=== PATIENT | female | born 1945 | race Caucasian/White ===

== ENCOUNTER → 2023-10-06 10:34 | Outpatient (REF) | payer MEDICARE, BC, SELFPAY ==
[2023-10-06 11:08] LABS: Urine Albumin Negative (Neg - Trace); Urine Bilirubin Negative (Negative); Urine Character Clear (Clear); Urine Color Yellow; Urine Glucose Negative (Negative); Urine Ketone Negative (Negative); Urine Leukocyte Negative (Negative); Urine Nitrite Negative (Negative); Urine Occult Blood Negative (Negative); Urine Specific Gravity 1.025 (<1.030); Urine Urobilinogen Negative (Neg - 1+)
[2023-10-06 12:01] LABS: Glycohemoglobin (HgbA1c) 5.8 % (4.0-5.6)
[2023-10-06 12:20] LABS: TSH 0.21 uIU/ml (0.47-4.68)
== END ==
LOC: RAD 10:34
PROVIDERS: ATTENDING PHYSICIAN Family Medicine
DX: N39.0 Urinary tract infection, site not specified (principal); E03.9 Hypothyroidism, unspecified; E11.9 Type 2 diabetes mellitus without complications; R06.02 Shortness of breath
CPT/HCPCS: 36415; 71046; 81003; 83036; 84443

== ENCOUNTER → 2023-10-17 13:27 | Outpatient (REF) | payer MEDICARE, BC, SELFPAY ==
[2023-10-17 14:13] LABS: Urine Albumin Negative (Neg - Trace); Urine Bilirubin Negative (Negative); Urine Character Clear (Clear); Urine Color Yellow; Urine Glucose Negative (Negative); Urine Ketone Negative (Negative); Urine Leukocyte Trace (Negative); Urine Nitrite Negative (Negative); Urine Occult Blood Negative (Negative); Urine Urobilinogen Negative (Neg - 1+)
[2023-10-17 14:31] LABS: Urine Red Blood Cell 0-2 /HPF (0-2)
[2023-10-17 14:32] LABS: Urine White Cell 0-2 /HPF (0-5)
== END ==
LOC: REG 13:27
PROVIDERS: ATTENDING PHYSICIAN Obstetrics & Gynecology; FAMILY PHYSICIAN Family Medicine
DX: N39.0 Urinary tract infection, site not specified (principal)
CPT/HCPCS: 81003; 81015; 87086

== ENCOUNTER 2023-11-04 06:21 | Day surgery (SDC) | payer MEDICARE, BC, SELFPAY ==
[2023-10-22 12:06] VITALS: BMI 33.3
[2023-11-04] VITALS (13 sets, daily range): BP systolic 127–180; BP diastolic 53–94; BMI 33.3
[2023-11-04] MEDS: NORMOSOL-R 1000 IV (08:00)
--- NOTE | 2023-11-04 12:27 | W.IMMPOSTOP ---
Addendum entered and electronically signed by Rupert Askew MD 11/04/23 12:36:
[facility]# [id number]
Original Note:
Surgical Immed Post Op Note
-
Primary Surgeon: Jamilah
Assisting Surgeon: Aleisha
Pre-op Diagnosis: Uterine perforation
Post-op Diagnosis: Uterine perforation
Procedure Performed: Diagnostic laparoscopy
Anesthesia Type: General
Specimen / Cultures: None
Estimated Blood Loss: 7 cc
Complications: None
Operative Findings:
1. Posterior perforation of the uterus overlying the sigmoid, mild ooze from uterus
2. No evidence of colonic or small bowel violation or injury
--- NOTE | 2023-11-04 12:45 | W.IMMPOSTOP ---
Surgical Immed Post Op Note
-
Primary Surgeon: Georgiana Moraes, DO
Intraop consult: Dr. Askew, general surgery
Pre-op Diagnosis: Thickened endometrial lining
Post-op Diagnosis: same; uterine perforation
Procedure Performed: Hysteroscopy D&C, dx laparoscopy with fulgeration uterine serosa at perforation site
Anesthesia Type: general LMA converted to ET, Dr. Demarco
Specimen / Cultures: 1. endocervical curettings 2. endometrial curettings
Estimated Blood Loss: 2ml
Complications: uterine perforation noted after gentle curettage
Operative Findings: Uterus sounded to 8 cm, endocervical canal is smooth, opens into wider space suspected to be endometrial cavity. Synechiae noted, tubal ostia not seen. Gentle curettage performed. Small perforation noted-yellow epiplocia fat
seen with hysteroscope.
Laparoscopic findings: small perforation noted posterior uterus midbody with minimal oozing controlled with fulgeration. Surgicel placed. Normal appearing external appearance of uterus, tubes and ovaries. No evidence of bowel injury.
Counts correct times 2.
--- NOTE | 2023-11-04 12:51 | W.PN.UPDATE ---
Update Note
Progress Note Update
Telephone call made after procedure and I spoke with Hayley Corw's daughter- in-law who is listed as her nurseryperson. I explained surgical findings and perforation followed by laparoscopy. Explained no evidence of bowel injury. Anticipate dc
today. Reviewed precautions pt and family to monitor for.
== END 2023-11-04 15:35 | disposition home or self-care (01) ==
LOC: SDS 06:21
PROVIDERS: ATTENDING PHYSICIAN Obstetrics & Gynecology; FAMILY PHYSICIAN Family Medicine
DX: R93.89 Abnormal findings on diagnostic imaging of other specified body structures (principal); N99.71 Accidental puncture and laceration of a genitourinary system organ or structure during a genitourinary system procedure; N73.6 Female pelvic peritoneal adhesions (postinfective); Y83.8 Other surgical procedures as the cause of abnormal reaction of the patient, or of later complication, without mention of misadventure at the time of the procedure
CPT/HCPCS: 58662; 58558; 88305

== ENCOUNTER 2024-04-03 21:47 | Emergency (ER) | payer MEDICARE, BC, SELFPAY ==
[2024-04-03 21:47] VITALS: BMI 32.8
[2024-04-03 21:49] VITALS: BP 181/73
[2024-04-03 22:00] VITALS: BP 167/61
[2024-04-03 22:16] LABS: % Basophils 0.6 % (0-2); % Eosinophils 4.1 % (0-6); % Immature Granulocytes 0.2 % (0-0.5); % Lymphocytes 29.7 % (20.5-51.1); % Monocytes 9.4 % (1.7-9.3); Absolute Basophils 0.1 10^3/uL (0-0.2); Absolute Eosinophils 0.3 10^3/uL (0-0.7); Absolute Lymphocytes 2.5 10^3/uL (1.2-3.4); Absolute Monocytes 0.8 10^3/uL (0.1-0.6); Absolute Neutrophils 4.7 10^3/uL (1.4-6.5); Hematocrit 41.6 % (37.0-47.0); Hemoglobin 14.3 g/dL (12.0-16.0); Mean Corp Hgb Conc. 34.4 g/dL (33.0-37.0); Mean Corpuscular Hgb 29.5 pg (27.0-31.0); Mean Corpuscular Volume 85.8 fL (81.0-99.0); Mean Platelet Volume 9.1 fL (7.4-10.4); Nucleated Red Blood Cells % 0 %; Platelet Count 301 10^3/uL (130-400); Red Blood Cell Count 4.85 10^6/uL (4.20-5.40); Red Cell Dist. Width 13.4 % (11.5-14.5); White Blood Cell Count 8.3 10^3/uL (4.8-10.8)
[2024-04-03 22:39] LABS: NT-proBNP 65.4 pg/ml; Troponin I < 0.012 ng/ml
[2024-04-03 22:48] LABS: ALT (SGPT) 75 U/L (0-35); AST (SGOT) 61 U/L (14-36); Albumin 4.8 g/dl (3.5-5.0); Alkaline Phosphatase 118 U/L (38-126); Blood Urea Nitrogen 23 mg/dl (7-17); Calcium 9.9 mg/dl (8.4-10.2); Carbon Dioxide 28 mmol/L (22-30); Chloride 100 mmol/L (98-107); Estimated Creatinine Clearance 42 ml/min; Glucose 103 mg/dl (70-99); Potassium 4.5 mmol/L (3.5-5.1); Sodium 135 mmol/L (135-145); Total Bilirubin 0.3 mg/dl (0.2-1.3); Total Protein 7.2 g/dl (6.3-8.2)
[2024-04-03 22:56] VITALS: BP 150/77
[2024-04-03 23:00] VITALS: BP 167/61
--- NOTE | 2024-04-03 23:09 | ED.GENMED ---
History of Present Illness
General
Chief Complaint: Chest Pain
Source: patient
Time Seen by Provider: 04/03/24 22:41
History of Present Illness
History of Present Illness:
78-year-old female presents to the emergency room for evaluation of chest pain. Patient states he was watching TV when she felt a sharp pain in her chest that started on the left or to the right. It lasted a couple minutes. No associated
shortness of breath, diaphoresis or nausea. No pain now. Patient thought it might be related to her pacemaker but she has only a pacemaker and not a defibrillator. No recent fever, chills, nausea or vomiting. No pain with deep inspiration.
Past History
Past History
ED Past Medical History: CVA, GERD, HTN, Hypercholesterolemia, Hypothyroidism and Other (Linq implant following cryptogenic CVA in 2019.)
ED Past Surgical History: , Orthopedic (Bilateral knee replacements) and Other
Social History
Tobacco: Non-smoker
Alcohol: None
Drug: None
Personal:
Living: alone (Has strong family support)
Employment: Retired
Phy Exam
Physical Exam
Physical Exam:
General: Awake, Alert, Oriented X3. No acute distress.
Vitals: unremarkable
Head: Atraumatic
Eyes: Pupils equal, EOMI
Throat: Airway intact, no exudates
Neck: Trachea midline
Lungs: Clear and equal b/l
Heart: Regular rate, no murmurs
Abd: Soft, Nontender, No pulsatile mass
Neuro: Nonfocal
Skin: Warm, dry, no rash
Extremities: pulses equal b/l, no edema
Scores
Heart Score for Chest Pain Patients
STEMI patient?: No
History: Slightly or Non-Suspicious
ECG: Normal
Age: >/= 65 years
Risk Factors: 1 or 2 Risk Factors
Troponin: </= Normal Limit
Heart Score for Chest Pain Patients: 3
Heart Score Risk: 2.5% MACE over next 6 weeks
Course
Orders/Labs/Results
Orders:
Orders
04/03/24 21:49
Electrocardiogram (*1) Urgent
Reason for Study: Other
Other Reason for Exam: Respiratory Distress
Cardiac Monitoring- Treatment ONCE
EKG- Treatment ONCE
IV Insert/Care/Rem.- Treatment PRN
CR Chest - 2 Views Urgent
Comment:
Reason For Exam: respiratory distress
O2 Therapy [RESP] Urgent
Titrate/Wean O2 to maintain O2 sat greater than (%): 93
Special Instructions: TO MAINTAIN CONTINUOUS O2 SATS >/= 93%
Pulse Ox/cont/shift [RESP] Urgent
Quantity: 1
Special Instructions: continuous pulse ox
04/03/24 22:11
Complete Blood Count/With Diff Urgent
Comprehensive Metabolic Panel Urgent
NT-proBNP Urgent
Troponin I Urgent
04/04/24 00:31
Troponin I Urgent
Abnormal Lab Results
04/03/24
22:11
Absolute Monos (auto) 0.8 H 10^3/uL
(0.1-0.6)
Monocytes % 9.4 H %
(1.7-9.3)
BUN 23 H mg/dl
(7-17)
Creatinine 1.1 H mg/dL
(0.6-1.0)
Glucose 103 H mg/dl
(70-99)
AST 61 H U/L
(14-36)
ALT 75 H U/L
(0-35)
04/03/24 22:11
04/03/24 22:11
Vital Signs
Initial and Last Documented VS:
Initial Vital Signs
Temp Pulse Resp BP Pulse Ox
97.7 F 63 20 181/73 96
04/03/24 21:49 04/03/24 21:49 04/03/24 21:49 04/03/24 21:49 04/03/24 21:49
Last Documented Vital Signs
Temp Pulse Resp BP Pulse Ox
97.7 F 65 14 140/60 95
04/03/24 21:49 04/04/24 00:00 04/04/24 00:00 04/04/24 00:00 04/04/24 00:00
MDM/Problems Addressed
Differential Diagnosis Includes:
angina, muscle strain, chest wall pain, dysrythmia
MDM/Problems Addressed:
Patient presents after a episode of chest pain which is resolved. Labs here show a normal troponin x 2. EKG shows no acute ischemic changes. Chest x-ray shows no acute disease. Patient is not tachycardic. She does not have a pleuritic component
to her chest pain. There is no evidence for any unstable process. Patient stable for discharge home.
*Radiology
Radiology exam reviewed: preliminary read by ED provider (Personally viewed the patient's chest x-ray see no acute disease)
*Pulse Oximetry
Patient hypoxic: no
*EKG
Interpreted by ED Provider?: Yes
Interpretation: normal
Heart Rate: 61
Rate: normal
Rhythm: av sequential
[place]: normal axis
Interval: normal interval
QRS Pattern: normal QRS
Ischemia: no ischemia
*Risk Consulting Treasury Director Interpretation
Rate: normal
Interpretation: normal
Rhythm: av sequential
*Critical Care Note
Total Time (30-74mins, 75-104mins- exclusive of procedures): Not Applicable
ED Attending Note
-
Portions of this chart may have been created with voice recognition software.� Occasional wrong word or��sound alike� substitutions may have occurred due to the inherent limitations of voice recognition software.
Discharge Plan
Departure
Patient Disposition: Home (Routine Discharge)
Date of Disposition: 04/04/24
Time of Disposition: 01:10
Patient with high blood pressure during this ER visit?: No
Condition: Good
Discharge Problem:
Chest pain
Instructions: Chest Pain DCA Follow Up
Prescriptions:
No Action
levothyroxine 100 MCG tablet
100 mcg PO DAILY
pantoprazole 40 MG tablet,delayed release (DR/EC)
40 mg PO DAILY
losartan 50 MG tablet
50 mg PO DAILY
escitalopram oxalate 20 MG tablet
20 mg PO DAILY
cyclosporine [Restasis] 10 DROPS dropperette
1 drp BOTH EYES BIDPRN PRN (Reason: dry eyes)
Cbd Oil
0.25 ml PO BIDPRN PRN (Reason: pain)
Caltrate 600 plus D 1 EACH tablet,chewable
1 ea PO BID
atorvastatin 80 MG tablet
80 mg PO QPM
amlodipine 5 MG tablet
5 mg PO DAILY
clopidogrel 75 MG tablet
75 mg PO DAILY Qty: 0 0RF
Rx Instructions:
Resume on Saturday 02/10
Centrum Silver
1 tab PO DAILY
magnesium 400 mg tablet
400 mg PO DAILY
Referrals:
Markie Hoover DO [Family Provider] -
Interventions
Interventions:
*General Assessment Last Done: 04/03/24 21:49
Discharge Date and Time
Print Language: BELARUSIAN
[2024-04-04] VITALS: BP 140/60
[2024-04-04 01:00] VITALS: BP 144/57
[2024-04-04 01:05] LABS: Troponin I < 0.012 ng/ml
== END 2024-04-04 01:35 | disposition home or self-care (01) ==
LOC: EMR 21:47
PROVIDERS: Emergency Medicine; EMERGENCY PHYSICIAN Emergency Medicine; FAMILY PHYSICIAN Family Medicine
DX: R07.89 Other chest pain (principal); K21.9 Gastro-esophageal reflux disease without esophagitis; I10 Essential (primary) hypertension; E78.00 Pure hypercholesterolemia, unspecified; E03.9 Hypothyroidism, unspecified; Z95.0 Presence of cardiac pacemaker; Z86.73 Personal history of transient ischemic attack (TIA), and cerebral infarction without residual deficits; Z96.653 Presence of artificial knee joint, bilateral
CPT/HCPCS: 99283; 71046; 80053; 83880; 84484; 85025; 93005

== ENCOUNTER → 2024-04-22 07:36 | Outpatient (REF) | payer MEDICARE, BC, SELFPAY ==
[2024-04-22 09:05] LABS: HDL Cholesterol 68 mg/dl; LDL Cholesterol, Calculated 119 mg/dl; Total Cholesterol 217 mg/dl (50-199); Triglyceride 150 mg/dl (10-149); Very Low Density Lipoprotein 30 mg/dl (0-30)
== END ==
LOC: REG 07:36
PROVIDERS: ATTENDING PHYSICIAN Internal Medicine Cardiovascular Disease; FAMILY PHYSICIAN Family Medicine
DX: E78.5 Hyperlipidemia, unspecified (principal)
CPT/HCPCS: 36415; 80061

== ENCOUNTER → 2024-05-12 13:01 | Outpatient (REF) | payer MEDICARE, BC, SELFPAY | LOC: MRI 13:01 | PROVIDERS: ATTENDING PHYSICIAN Obstetrics & Gynecology; FAMILY PHYSICIAN Family Medicine | DX: R93.89 Abnormal findings on diagnostic imaging of other specified body structures (principal) | CPT/HCPCS: 72197; A9575 ==

== ENCOUNTER 2024-08-20 14:27 | Emergency (ER) | payer MEDICARE, BC, SELFPAY ==
[2024-08-20 14:30] VITALS: BP 175/98
[2024-08-20 15:19] LABS: % Basophils 0.9 % (0-2); % Immature Granulocytes 0.1 % (0-0.5); % Lymphocytes 28.2 % (20.5-51.1); % Monocytes 11.1 % (1.7-9.3); % Neutrophils 54.7 % (42.2-75.2); Absolute Basophils 0.1 10^3/uL (0-0.2); Absolute Eosinophils 0.4 10^3/uL (0-0.7); Absolute Lymphocytes 2.1 10^3/uL (1.2-3.4); Absolute Monocytes 0.8 10^3/uL (0.1-0.6); Absolute Neutrophils 4.2 10^3/uL (1.4-6.5); Hematocrit 44.1 % (37.0-47.0); Hemoglobin 14.6 g/dL (12.0-16.0); Mean Corp Hgb Conc. 33.1 g/dL (33.0-37.0); Mean Corpuscular Hgb 29.1 pg (27.0-31.0); Mean Platelet Volume 9.2 fL (7.4-10.4); Nucleated Red Blood Cells % 0 %; Platelet Count 293 10^3/uL (130-400); Red Blood Cell Count 5.01 10^6/uL (4.20-5.40); Red Cell Dist. Width 13.6 % (11.5-14.5); White Blood Cell Count 7.6 10^3/uL (4.8-10.8)
[2024-08-20 15:27] LABS: ALT (SGPT) 87 U/L (0-35); AST (SGOT) 43 U/L (14-36); Albumin 4.7 g/dl (3.5-5.0); Alkaline Phosphatase 76 U/L (38-126); Blood Urea Nitrogen 20 mg/dl (7-17); Calcium 9.8 mg/dl (8.4-10.2); Carbon Dioxide 33 mmol/L (22-30); Chloride 98 mmol/L (98-107); Glucose 112 mg/dl (70-99); Potassium 4.9 mmol/L (3.5-5.1); Sodium 138 mmol/L (135-145); Total Bilirubin 0.2 mg/dl (0.2-1.3); Total Protein 7.3 g/dl (6.3-8.2); eGFR > 60.00
[2024-08-20 15:38] LABS: Urine Albumin Negative (Neg - Trace); Urine Bilirubin Negative (Negative); Urine Character Clear (Clear); Urine Color Yellow; Urine Glucose Negative (Negative); Urine Ketone Negative (Negative); Urine Leukocyte 1+ (Negative); Urine Nitrite Negative (Negative); Urine Occult Blood Negative (Negative); Urine Specific Gravity 1.015 (<1.030); Urine Urobilinogen Negative (Neg - 1+); Urine pH 6.5 (5.0-9.0)
[2024-08-20 16:07] LABS: Urine Red Blood Cell 0-2 /HPF (0-2); Urine White Cell 0-2 /HPF (0-5)
[2024-08-20 16:50] VITALS: BMI 32.7
--- NOTE | 2024-08-20 16:55 | EDRN ---
Pt took 2 buspirone 5mg tablets yesterday morning. Around [id number] last night she took lexapro 20mg which she has not had for awhile. Pt unsure if she has taken it since December. Before pt went to bed, she was hallucinating. Called family physician
and advised to come to ED for evaluation. While in the waiting room, pt says she had couple hallucinations. Pt had nausea couple times today. No vomiting. Pt denies cp, sob, abd pain, fever/chills/cough.
[2024-08-20 17:06] VITALS: BP 180/71
[2024-08-20 18:00] VITALS: BP 177/75
[2024-08-20 19:00] VITALS: BP 177/80
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
== END 2024-08-20 19:45 | disposition home or self-care (01) ==
LOC: EMR 14:27
PROVIDERS: Student in an Organized Health Care Education/Training Program; EMERGENCY PHYSICIAN Emergency Medicine; FAMILY PHYSICIAN Family Medicine
DX: R41.82 Altered mental status, unspecified (principal); T50.905A Adverse effect of unspecified drugs, medicaments and biological substances, initial encounter; I10 Essential (primary) hypertension
CPT/HCPCS: 99284; 70450; 80053; 81003; 81015; 85025; 87086

== ENCOUNTER → 2024-11-25 10:12 | Outpatient (REF) | payer MEDICARE, BC, SELFPAY ==
[2024-11-25 11:13] LABS: % Basophils 0.7 % (0-2); % Eosinophils 7.1 % (0-6); % Immature Granulocytes 0.2 % (0-0.5); % Lymphocytes 21.2 % (20.5-51.1); % Monocytes 9.4 % (1.7-9.3); % Neutrophils 61.4 % (42.2-75.2); Absolute Eosinophils 0.4 10^3/uL (0-0.7); Absolute Lymphocytes 1.2 10^3/uL (1.2-3.4); Absolute Monocytes 0.5 10^3/uL (0.1-0.6); Absolute Neutrophils 3.5 10^3/uL (1.4-6.5); Hematocrit 45.4 % (37.0-47.0); Hemoglobin 14.9 g/dL (12.0-16.0); Mean Corp Hgb Conc. 32.8 g/dL (33.0-37.0); Mean Corpuscular Volume 88.5 fL (81.0-99.0); Mean Platelet Volume 9.4 fL (7.4-10.4); Nucleated Red Blood Cells % 0 %; Platelet Count 253 10^3/uL (130-400); Red Blood Cell Count 5.13 10^6/uL (4.20-5.40); White Blood Cell Count 5.7 10^3/uL (4.8-10.8)
[2024-11-25 11:45] LABS: ALT (SGPT) 60 U/L (0-35); AST (SGOT) 42 U/L (14-36); Albumin 4.2 g/dl (3.5-5.0); Alkaline Phosphatase 78 U/L (38-126); Blood Urea Nitrogen 20 mg/dl (7-17); Calcium 9.9 mg/dl (8.4-10.2); Carbon Dioxide 33 mmol/L (22-30); Chloride 106 mmol/L (98-107); Glucose 104 mg/dl (70-99); HDL Cholesterol 64 mg/dl; LDL Cholesterol, Calculated 123 mg/dl; Potassium 4.6 mmol/L (3.5-5.1); Sodium 145 mmol/L (135-145); Total Bilirubin 0.5 mg/dl (0.2-1.3); Total Cholesterol 210 mg/dl (50-199); Triglyceride 115 mg/dl (10-149); Very Low Density Lipoprotein 23 mg/dl (0-30)
[2024-11-25 12:14] LABS: TSH 0.06 uIU/ml (0.47-4.68)
== END ==
LOC: REG 10:12
PROVIDERS: ATTENDING PHYSICIAN Family Medicine
DX: I10 Essential (primary) hypertension (principal); E78.5 Hyperlipidemia, unspecified; R53.83 Other fatigue; E03.9 Hypothyroidism, unspecified
CPT/HCPCS: 36415; 80053; 80061; 84443; 85025

== ENCOUNTER 2024-12-28 18:53 | Emergency (ER) | payer MEDICARE, BC, SELFPAY ==
[2024-12-28] VITALS (7 sets, daily range): BP systolic 158–214; BP diastolic 66–88
[2024-12-28 19:10] LABS: % Basophils 0.6 % (0-2); % Eosinophils 3.4 % (0-6); % Immature Granulocytes 0.2 % (0-0.5); % Lymphocytes 22.8 % (20.5-51.1); % Monocytes 8.6 % (1.7-9.3); % Neutrophils 64.4 % (42.2-75.2); Absolute Basophils 0.1 10^3/uL (0-0.2); Absolute Eosinophils 0.3 10^3/uL (0-0.7); Absolute Monocytes 0.7 10^3/uL (0.1-0.6); Absolute Neutrophils 5.6 10^3/uL (1.4-6.5); Hematocrit 40.3 % (37.0-47.0); Hemoglobin 13.9 g/dL (12.0-16.0); Mean Corp Hgb Conc. 34.5 g/dL (33.0-37.0); Mean Corpuscular Hgb 29.6 pg (27.0-31.0); Mean Corpuscular Volume 85.7 fL (81.0-99.0); Mean Platelet Volume 9.2 fL (7.4-10.4); Nucleated Red Blood Cells % 0 %; Platelet Count 242 10^3/uL (130-400); Red Cell Dist. Width 13.2 % (11.5-14.5); White Blood Cell Count 8.6 10^3/uL (4.8-10.8)
[2024-12-28] MEDS: NSS 1000 IV (19:27)
[2024-12-28] MEDS: TRANDATE 20 MG IV (19:28)
[2024-12-28 19:30] LABS: Blood Urea Nitrogen 30 mg/dl (7-17); Calcium 9.3 mg/dl (8.4-10.2); Carbon Dioxide 23 mmol/L (22-30); Chloride 99 mmol/L (98-107); Estimated Creatinine Clearance 55 ml/min; Glucose 101 mg/dl (70-99); Sodium 133 mmol/L (135-145); eGFR > 60.00
[2024-12-28 19:33] LABS: Troponin I < 0.012 ng/ml
[2024-12-28] MEDS: ZOFRAN 4 MG IV (19:34)
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
[2024-12-28] MEDS: ANTIVERT 25 MG PO (20:41)
== END 2024-12-28 22:32 | disposition home or self-care (01) ==
LOC: EMR 18:53
PROVIDERS: Emergency Medicine; EMERGENCY PHYSICIAN Student in an Organized Health Care Education/Training Program; FAMILY PHYSICIAN Family Medicine
DX: R42 Dizziness and giddiness (principal); R11.2 Nausea with vomiting, unspecified; H55.00 Unspecified nystagmus; I10 Essential (primary) hypertension; E03.9 Hypothyroidism, unspecified; E78.00 Pure hypercholesterolemia, unspecified; Z86.73 Personal history of transient ischemic attack (TIA), and cerebral infarction without residual deficits; Z95.0 Presence of cardiac pacemaker
CPT/HCPCS: 96374; 96375; 96361; 99284; 70450; 80048; 84484; 85025; 93005

== ENCOUNTER 2024-12-30 14:38 | Emergency (ER) | payer MEDICARE, BC, SELFPAY ==
[2024-12-30 14:50] VITALS: BP 183/95
[2024-12-30 15:17] LABS: % Basophils 0.5 % (0-2); % Eosinophils 3.7 % (0-6); % Immature Granulocytes 0.1 % (0-0.5); % Lymphocytes 18.1 % (20.5-51.1); % Monocytes 7.3 % (1.7-9.3); % Neutrophils 70.3 % (42.2-75.2); Absolute Eosinophils 0.3 10^3/uL (0-0.7); Absolute Lymphocytes 1.3 10^3/uL (1.2-3.4); Absolute Monocytes 0.5 10^3/uL (0.1-0.6); Absolute Neutrophils 5.1 10^3/uL (1.4-6.5); Hematocrit 44.5 % (37.0-47.0); Hemoglobin 14.5 g/dL (12.0-16.0); Mean Corp Hgb Conc. 32.6 g/dL (33.0-37.0); Mean Corpuscular Hgb 28.9 pg (27.0-31.0); Mean Corpuscular Volume 88.8 fL (81.0-99.0); Mean Platelet Volume 9.4 fL (7.4-10.4); Nucleated Red Blood Cells % 0 %; Platelet Count 264 10^3/uL (130-400); Red Blood Cell Count 5.01 10^6/uL (4.20-5.40); Red Cell Dist. Width 13.7 % (11.5-14.5); White Blood Cell Count 7.3 10^3/uL (4.8-10.8)
[2024-12-30 15:40] LABS: ALT (SGPT) 45 U/L (0-35); AST (SGOT) 43 U/L (14-36); Albumin 4.5 g/dl (3.5-5.0); Alkaline Phosphatase 74 U/L (38-126); Blood Urea Nitrogen 15 mg/dl (7-17); Calcium 9.7 mg/dl (8.4-10.2); Carbon Dioxide 29 mmol/L (22-30); Chloride 101 mmol/L (98-107); Glucose 108 mg/dl (70-99); Potassium 4.4 mmol/L (3.5-5.1); Sodium 140 mmol/L (135-145); Total Bilirubin 0.4 mg/dl (0.2-1.3); eGFR > 60.00
[2024-12-30 15:45] VITALS: BMI 32.4
[2024-12-30 16:00] VITALS: BP 194/72
--- NOTE | 2024-12-30 16:56 | ED.GENMED ---
History of Present Illness
General
Chief Complaint: Blood Pressure Problem
Source: patient and family
Time Seen by Provider: 12/30/24 16:04
History of Present Illness
History of Present Illness:
This is an 79-year-old female who again presents for elevated blood pressure. She was seen on Friday after she had become a little dizzy and her blood pressure was noted to be very elevated. Patient states that she took it at home and it was
noted again to be elevated today and call cardiology advised her to come to the hospital. The patient states that she did see her primary doctor yesterday. [id number] states that the Dr. Did not make any changes. Call cardiology today and
they realized that the patient had not filled her amlodipine in some time. They are unsure as to when she should have been on it. [id number] did give her a dose today. Patient denies chest pain. Has a mild headache but otherwise feels well.
No shortness of breath. The patient states that she does not typically check her blood pressure so is not really sure how long it has been high
Past History
Past History
ED Past Medical History: CVA, GERD, HTN, Hypercholesterolemia, Hypothyroidism and Other (Linq implant following cryptogenic CVA in 2019. Head injury)
ED Past Surgical History: , Orthopedic (Bilateral knee replacements) and Other
Social History
Tobacco: Non-smoker
Alcohol: None
Drug: None
Personal:
Living: alone (Has strong family support)
Employment: Retired
Phy Exam
Physical Exam
Physical Exam:
CONSTITUTIONAL Patient alert and oriented to person, place and time. Well-appearing. Vital signs reviewed.
HEAD atraumatic, normocephalic.
EYES eyelids normal to inspection, Extraocular muscles intact, Conjunctiva normal, Sclera normal.
NECK normal range of motion, Trachea midline, no jugular venous distention.
RESPIRATORY CHEST No respiratory distress noted, Chest expansion equal, Bilateral breath sounds clear.
CARDIOVASCULAR regular rate and rhythm, Heart sounds normal.
ABDOMEN abdomen nontender, Bowel sounds normal. No distention.
BACK normal inspection, no obvious deformities
UPPER EXTREMITY range of motion normal, Motor strength normal, no cyanosis, no edema.
LOWER EXTREMITY range of motion normal, Motor strength normal, no cyanosis, no edema.
NEURO Speech normal, No focal motor deficits, C[place]on coma scale 15, Memory normal, Cranial Nerves intact to screening exam.
SKIN skin warm, dry, and normal in color.
Course
Orders/Labs/Results
Orders:
Orders
12/30/24 14:54
EKG [Electrocardiogram (*1)] Urgent
Reason for Study: Hypertension, Benign
EKG- Treatment ONCE
12/30/24 15:05
Complete Blood Count/With Diff Urgent
Comprehensive Metabolic Panel Urgent
Abnormal Lab Results
12/30/24
15:05
MCHC 32.6 L g/dL
(33.0-37.0)
Lymphocytes % 18.1 L %
(20.5-51.1)
Glucose 108 H mg/dl
(70-99)
AST 43 H U/L
(14-36)
ALT 45 H U/L
(0-35)
12/30/24 15:05
12/30/24 15:05
Vital Signs
Initial and Last Documented VS:
Initial Vital Signs
Temp Pulse Resp BP Pulse Ox
98.2 F 63 18 183/95 97
12/30/24 14:50 12/30/24 14:50 12/30/24 14:50 12/30/24 14:50 12/30/24 14:50
Last Documented Vital Signs
Temp Pulse Resp BP Pulse Ox
98.2 F 68 16 194/72 95
12/30/24 14:50 12/30/24 16:30 12/30/24 16:30 12/30/24 16:00 12/30/24 16:30
MDM/Problems Addressed
Differential Diagnosis Includes:
Renal artery stenosis, DE, CVA, acute renal failure
MDM/Problems Addressed:
Uncontrolled hypertension
*Pulse Oximetry
Patient hypoxic: no
*EKG
Interpreted by ED Provider?: Yes
Interpretation: abnormal
Rhythm: av sequential
Ischemia: non-specific ST changes
*Freight Caller Interpretation
Rate: normal
Interpretation: abnormal
Rhythm: av sequential
*Critical Care Note
Total Time (30-74mins, 75-104mins- exclusive of procedures): Not Applicable
Data Reviewed
Review of Other/Old Records Reveals: Labs (Previous labs reviewed)
Source: patient
Prescriptions/Medications Considered But Not Given:
Considered IV hydralazine patient's blood pressure is improving and she feels well
Patient Management
Discussion with other providers: Retail Visual Merchandiser (Cardiology Dr. Winn)
Escalation/DeEscalation of care consider admission/obs:
Case discussed cardiology. Patient has not been taking her amlodipine. We will have her start taking 10 mg daily. She will continue her losartan and follow-up with both cardiology and PCP
ED Attending Note
-
Portions of this chart may have been created with voice recognition software.� Occasional wrong word or��sound alike� substitutions may have occurred due to the inherent limitations of voice recognition software.
Discharge Plan
Departure
Patient Disposition: Home (Routine Discharge)
Date of Disposition: 12/30/24
Time of Disposition: 16:57
Patient with high blood pressure during this ER visit?: Yes
Discharge Problem:
Uncontrolled hypertension
Instructions: High Blood Pressure (DC), BLOOD PRESSURE
Prescriptions:
No Action
levothyroxine 100 MCG tablet
100 mcg PO DAILY
pantoprazole 40 MG tablet,delayed release (DR/EC)
40 mg PO BID
losartan 50 MG tablet
50 mg PO BID
escitalopram oxalate 20 MG tablet
20 mg PO DAILY
cyclosporine [Restasis] 10 DROPS dropperette
1 drp BOTH EYES BIDPRN PRN (Reason: dry eyes)
Caltrate 600 plus D 1 EACH tablet,chewable
1 ea PO BID
atorvastatin 80 MG tablet
80 mg PO QPM
amlodipine 5 MG tablet
5 mg PO DAILY
Centrum Silver Women 8 mg iron-400 mcg-50 mcg Tablet
1 tab PO DAILY
magnesium oxide 400 mg magnesium Capsule
400 mg PO DAILY
aspirin 81 mg Capsule
81 mg PO DAILY
buspirone 5 mg Tablet
5 mg PO BID PRN (Reason: anxiety)
riboflavin (vitamin B2) 400 mg Tablet
400 mg PO DAILY
famotidine 40 mg Tablet
40 mg PO BID
Zyrtec
1 tab PO DAILY
meclizine 25 mg tablet
25 mg PO TID PRN (Reason: dizziness) 5 Days Qty: 15 0RF
Referrals:
NONE,* [Family Provider] -
Activity Restrictions/Additional Instructions:
Please increase your amlodipine to 10 mg daily. Please continue your losartan as prescribed. Please see your doctor or cardiology in the next 1 week for follow-up and reevaluation. Return immediately for chest pain, shortness of breath, headache,
vision change, motor weakness or any other concerns peer
Interventions
Interventions:
*Risk Screen - Suicide Last Done: 12/30/24 14:50
*General Assessment Last Done: 12/30/24 14:50
*Neglect/Abuse Screening Last Done: 12/30/24 14:50
*ED- Fall Risk Assessment Last Done: 12/30/24 15:48
*ED COVID-19 Vaccine History Last Done: 12/30/24 14:50
ED- Cardiac Assessment Last Done: 12/30/24 15:48
ED- Neurological Assessment Last Done: 12/30/24 15:48
ED- Pulmonary Assessment Last Done: 12/30/24 15:48
Discharge Date and Time
Print Language: WALLISIAN
== END 2024-12-30 17:16 | disposition home or self-care (01) ==
LOC: EMR 14:38
PROVIDERS: Emergency Medicine; EMERGENCY PHYSICIAN Emergency Medicine
DX: I10 Essential (primary) hypertension (principal); R42 Dizziness and giddiness; E03.9 Hypothyroidism, unspecified; E78.00 Pure hypercholesterolemia, unspecified; Z86.73 Personal history of transient ischemic attack (TIA), and cerebral infarction without residual deficits; Z79.899 Other long term (current) drug therapy; R94.31 Abnormal electrocardiogram [ECG] [EKG]
CPT/HCPCS: 99284; 80053; 85025; 93005

== ENCOUNTER → 2025-01-13 16:00 | Outpatient (REF) | payer MEDICARE, BC, SELFPAY | LOC: RCS 16:00 | PROVIDERS: ATTENDING PHYSICIAN Internal Medicine Cardiovascular Disease; FAMILY PHYSICIAN Family Medicine | DX: I35.0 Nonrheumatic aortic (valve) stenosis (principal) | CPT/HCPCS: 93306 ==

== ENCOUNTER → 2025-01-18 11:32 | Outpatient (REF) | payer MEDICARE, BC, SELFPAY ==
[2025-01-18 13:33] LABS: Free T4 1.21 ng/dl (0.78-2.19)
[2025-01-18 13:47] LABS: TSH 0.61 uIU/ml (0.47-4.68)
== END ==
LOC: REG 11:32
PROVIDERS: ATTENDING PHYSICIAN Family Medicine; OTHER PHYSICIAN Internal Medicine Cardiovascular Disease
DX: E03.9 Hypothyroidism, unspecified (principal)
CPT/HCPCS: 36415; 84439; 84443

== ENCOUNTER → 2025-04-05 15:50 | Outpatient (REF) | payer MEDICARE, BC, SELFPAY | LOC: RAD 15:50 | PROVIDERS: ATTENDING PHYSICIAN Internal Medicine Gastroenterology; FAMILY PHYSICIAN Family Medicine | DX: R14.0 Abdominal distension (gaseous) (principal) | CPT/HCPCS: 74019 ==

== ENCOUNTER 2025-04-08 06:28 | Day surgery (SDC) | payer MEDICARE, BC, SELFPAY | END 2025-04-08 12:36 | disposition home or self-care (01) | LOC: GI 06:28 | PROVIDERS: ATTENDING PHYSICIAN Internal Medicine Gastroenterology | DX: R12 Heartburn (principal); R13.10 Dysphagia, unspecified; K31.7 Polyp of stomach and duodenum; K44.9 Diaphragmatic hernia without obstruction or gangrene; K31.89 Other diseases of stomach and duodenum; K29.50 Unspecified chronic gastritis without bleeding; K63.89 Other specified diseases of intestine | CPT/HCPCS: 43239; 88305; 88342 ==

== ENCOUNTER 2025-06-21 17:22 | Inpatient (IN) | payer MEDICARE, BC, SELFPAY ==
[2025-06-20] VITALS (12 sets, daily range): BP systolic 137–167; BP diastolic 58–84; BMI 34.4; BMI 32.0
[2025-06-20 14:00] LABS: Hematocrit 42.3 % (37.0-47.0); Hemoglobin 13.9 g/dL (12.0-16.0); Mean Corp Hgb Conc. 32.9 g/dL (33.0-37.0); Mean Corpuscular Volume 88.1 fL (81.0-99.0); Nucleated Red Blood Cells % 0 %; Platelet Count 290 10^3/uL (130-400); Red Cell Dist. Width 14.0 % (11.5-14.5)
[2025-06-20 14:13] LABS: ALT (SGPT) 68 U/L (0-35); AST (SGOT) 47 U/L (14-36); Albumin 4.4 g/dl (3.5-5.0); Alkaline Phosphatase 85 U/L (38-126); Blood Urea Nitrogen 29 mg/dl (7-17); Calcium 9.8 mg/dl (8.4-10.2); Carbon Dioxide 26 mmol/L (22-30); Chloride 103 mmol/L (98-107); Estimated Creatinine Clearance 53 ml/min; Glucose 110 mg/dl (70-99); Lipase 118 U/L (23-300); Potassium 4.5 mmol/L (3.5-5.1); Sodium 134 mmol/L (135-145); Total Protein 7.2 g/dl (6.3-8.2); eGFR > 60.00
[2025-06-20 14:14] LABS: INR 0.94; PT 12.8 Sec (11.4-14.6)
--- NOTE | 2025-06-20 14:17 | ED.GENMED ---
History of Present Illness
General
Chief Complaint: Chest Pain
Source: patient
Exam Limitations: none
Time Seen by Provider: 06/20/25 14:11
History of Present Illness
History of Present Illness:
See MDM
Past History
Past History
ED Past Medical History: CVA, GERD, HTN, Hypercholesterolemia, Hypothyroidism and Other (Linq implant following cryptogenic CVA in 2019. Head injury)
ED Past Surgical History: , Orthopedic (Bilateral knee replacements) and Other
Social History
Tobacco: Non-smoker
Alcohol: None
Drug: None
Personal:
Living: alone (Has strong family support)
Employment: Retired
Phy Exam
Physical Exam
Physical Exam:
See MDM
Scores
Heart Score for Chest Pain Patients
STEMI patient?: No
History: Slightly or Non-Suspicious
ECG: Nonspecific Repolarization
Age: >/= 65 years
Risk Factors: 1 or 2 Risk Factors
Troponin: >1 - <3 x Normal Limit
Heart Score for Chest Pain Patients: 5
Heart Score Risk: 20.3% MACE over next 6 weeks
Course
Orders/Labs/Results
Orders:
Orders
06/20/25 Breakfast
Cholesterol Lowering
At Your Request: Full Participation
Does patient need a safe tray?: No
Cholesterol Lowering: Sodium, 2 Gram
06/20/25 13:15
Electrocardiogram (*1) Urgent
Reason for Study: Chest Pain
EKG- Treatment ONCE
06/20/25 13:52
Complete Blood Count/With Diff Urgent
Comprehensive Metabolic Panel Urgent
Lipase Urgent
Prothrombin Time Urgent
Troponin I Urgent
06/20/25 14:15
Morphine Sulfate 4 mg IV NOW STA
CR Chest - 2 Views Urgent
Comment:
Reason For Exam: chest pain
06/20/25 15:47
Troponin I Urgent
06/20/25 16:55
Electrocardiogram (*1) Urgent
Reason for Study: Chest Pain
EKG- Treatment ONCE
06/20/25 18:15
Admit/Transfer Patient As Directed
Co-Sign Provider:
Level of Care: Observation services
Assign to:: Telemetry
Physician / Group: Hospitalist
Diagnosis: Chest Pain
Reason for Telemetry: Chest Pain syndromes
Date to Stop Telemetry: 06/22/25
Time to Stop Telemetry: 11:00
Expected length of stay greater than two midnights?: Yes
ELOS- Estimated Length of Stay in days: 2
I certify the patient meets the requirements for IP care: Yes
PRN Pain Medication Management As Directed
May give lesser potent ordered pain med per pt: Yes
preference::
Protocol:: Medication orders for pain may be administered in a
manner that supports deferring to patient preference
when the pt is:
-Requesting an ordered lesser potent pain medication.
Least to most potent pain medications are defined as:
acetaminophen < NSAID < tramadol < opioids (morphine,
oxycodone, hydromorphone).
- Requesting a lesser dose of the same medication IF
ORDERED.
- Requesting a less intrusive route of administration
if both routes are prescribed by the provider (PO <
IV).
06/20/25 18:22
Code Status As Directed
Resuscitation Status: Full Code
06/20/25 19:07
CARDIOLOGY CONSULT Routine
Consulting Provider: Joselin Villavicencio
Was physician already notified: Yes
06/20/25 21:50
Acetaminophen [Tylenol] 650 mg PO Q4HWA
Bisacodyl [Dulcolax] 10 mg RECTAL [id number] PRN
Buspirone [Buspar] 5 mg PO BID PRN anxiety
Docusate W/Senna [Senokot-S] 1 tablet PO BIDPRN PRN
Losartan [Cozaar] 50 mg PO BID
Meclizine [Antivert] 25 mg PO TID PRN dizziness
Pantoprazole [Protonix] 40 mg PO BID
Polyethylene Glycol Powder [Miralax] 17 grams PO DAILYPRN PRN
cycloSPORINE [Restasis 0.05% Ophthalmic Emulsion] 1 drops BOTH EYES BIDPRN PRN dry eyes
06/20/25 21:50
Activity As Directed
Activity Level: As Tolerated
Vital Signs As Directed
Frequency: Per unit guidelines
DX Deep Vein Thrombosis Video Routine
06/20/25 22:00
Cetirizine HCl [Zyrtec] 5 mg PO DAILYPRN PRN Allergies Allergies
06/20/25 22:48
Troponin I Q6H
06/21/25 00:00
US Periph Venous LOWER Ext Mehdi Routine
Reason For Exam: Ankle Swelling/Calf Cramping
06/21/25 03:12
Complete Blood Count/No Diff IN AM
Comprehensive Metabolic Panel IN AM
Magnesium IN AM
Troponin I Q6H
06/21/25 06:00
Levothyroxine [Synthroid] 100 mcg PO DAILY @ 0600
06/21/25 08:00
Amlodipine [Norvasc] 5 mg PO DAILY
Aspirin Low Dose EC [Aspir Low (Enteric Coated)] 81 mg PO DAILY
Calcium Carbonate/Vitamin D3 [Oscal 500 + D] 500 mg PO BID
Escitalopram Oxalate [Lexapro] 20 mg PO DAILY
Famotidine [Pepcid] 40 mg PO BID
Magnesium Oxide 400 mg PO DAILY
06/21/25 09:50
Troponin I Q6H
06/21/25 18:00
Atorvastatin [Lipitor] 80 mg PO QPM
Enoxaparin Sodium [Lovenox] 40 mg SC QPM
06/22/25 11:00
DC Protocol for Telemetry ONCE
Abnormal Lab Results
06/20/25 06/20/25
13:52 15:47
MCHC 32.9 L g/dL
(33.0-37.0)
Absolute Monos (auto) 0.8 H 10^3/uL
(0.1-0.6)
Lymphocytes % 16.0 L %
(20.5-51.1)
Monocytes % 9.4 H %
(1.7-9.3)
Sodium 134 L mmol/L
(135-145)
BUN 29 H mg/dl
(7-17)
Glucose 110 H mg/dl
(70-99)
AST 47 H U/L
(14-36)
ALT 68 H U/L
(0-35)
Troponin I 0.062 H* D ng/ml
06/20/25 13:52
06/20/25 13:52
Vital Signs
Initial and Last Documented VS:
Initial Vital Signs
Temp Pulse Resp BP Pulse Ox
98.7 F 44 18 161/82 96
06/20/25 13:16 06/20/25 13:16 06/20/25 13:16 06/20/25 13:16 06/20/25 13:16
Last Documented Vital Signs
Temp Pulse Resp BP Pulse Ox
97.9 F 66 16 144/64 97
06/21/25 03:05 06/21/25 08:02 06/21/25 08:02 06/21/25 08:01 06/21/25 08:04
MDM/Problems Addressed
Differential Diagnosis Includes:
Note:
CHIEF COMPLAINT(S)
Pain in the upper body, particularly around the pacemaker site, left arm, and under the arm.
HISTORY OF PRESENT ILLNESS
The patient is an 80-year-old female with a pacemaker, presenting with pain that began at approximately 11:00 a.m. today. The pain was triggered when she bent over after getting up from the sofa. She describes the pain as originating from the area
around her pacemaker and extending to her left arm and underarm. The pain persists, and although she experiences some relief, the discomfort continues. Associated symptoms include nausea. She denies consistent shortness of breath, feeling it only
occasionally. There is no significant pain reported in the upper middle abdomen or childbirth after eating. She is concerned about possible gallbladder issues. The patient is unclear if the pain may be muscular, suggesting a strain as a potential
cause.
SOCIAL DETERMINANTS AFFECTING HEALTH
The patient did not mention any social determinants affecting her health or care at this time.
PHYSICAL EXAM
General: Alert, no acute distress.
Skin: Warm, dry.
Head: Normocephalic, atraumatic
Neck: Appears supple, trachea midline.
Eyes, Ears, Nose, Mouth, and Throat: Moist mucous membranes
Cardiovascular: No signs of cyanosis. Regular rate and rhythm
Respiratory: Respirations are non-labored. Lungs clear
Abdomen: Non-distended. No significant tenderness localized
Musculoskeletal: No deformities
Neurological: No focal neurological deficit observed.
Psychiatric: Cooperative, appropriate mood and affect.
PLAN
1. Administration of a small dose of morphine for pain relief.
2. Obtain a chest x-ray to evaluate the pacemaker leads.
3. Perform blood work, including troponin levels, to ensure cardiac function is normal; repeating if necessary.
4. Evaluate for possible gallbladder issues based on blood work results.
5. Consideration of discharge if testing is within normal limits and symptoms are manageable.
DIFFERENTIAL DIAGNOSIS
The Differential Diagnosis includes, in no particular order and is not limited to:
- Musculoskeletal strain
- Pacemaker lead displacement
- Cardiac event
- Gallbladder pathology
- Costochondritis
- Gastroesophageal reflux disease
- Peptic ulcer disease
- Angina
- Pleurisy
- Pneumothorax
SUMMARY OF ENCOUNTER
The patient presented to the emergency department with upper body pain centered around the pacemaker site and left arm. After an examination, it was decided to manage her discomfort with a small dose of morphine. Diagnostic plans include chest
imaging and blood tests to explore cardiac and gallbladder functions to determine the root cause of symptoms.
DISPOSITION
Pending additional diagnostic results and response to treatment, disposition consideration includes potential discharge if all findings are normal.
EMERGENCY TREATMENTS ADMINISTERED
A small dose of morphine was administered to alleviate pain.
DIAGNOSIS
- Musculoskeletal pain, possibly due to strain (ICD-10: M79.1)
- Rule out cardiovascular and gallbladder complications.
SUMMARY OF ENCOUNTER
The patient presented to the emergency department with chest and shoulder pain following an episode of bending forward. Initial evaluations included a negative troponin test, which was repeated and became elevated.
DISPOSITION
Admit
ASSESSMENT
Musculoskeletal pain potentially exacerbated by body position changes.
PLAN
The plan is to admit the patient due to the uptrending troponin
INDEPENDENT REVIEW OF LABS AND INTERPRETATION OF TESTS
My independent review of the troponin tests shows positive results
PATIENT EDUCATION AND COUNSELING
The patient has been informed about the results of her tests and the potential musculoskeletal origin of her pain. Given that we cannot rule out cardiac origin. Will admit
MEDICAL DECISION MAKING
- Number and Complexity of Problems Addressed: Chronic conditions affecting care include musculoskeletal pain.
- Data:
Category 1: My independent interpretation of the troponin test results confirms positive findings
- Risk: Consideration of Admission/Observation: Escalation of care including admission/observation was considered given the complexity and risk of the patients presenting complaint, exam findings, and/or their underlying comorbidities. Given the
elevated troponin. Will admit
DIAGNOSIS
Chest pain
*Pulse Oximetry
SaO2: 96
Patient hypoxic: no
*Critical Care Note
Total Time (30-74mins, 75-104mins- exclusive of procedures): Not Applicable
ED Attending Note
-
Portions of this chart may have been created with voice recognition software.� Occasional wrong word or��sound alike� substitutions may have occurred due to the inherent limitations of voice recognition software.
Discharge Plan
Departure
Patient Disposition: Admit
Presentation/result/management discussed w/ accepting MD/DO: Hospitalist
Patient with high blood pressure during this ER visit?: Yes
Discharge Problem:
Chest pain
Interventions
Interventions:
*Risk Screen - Suicide Last Done: 06/20/25 13:16
*General Assessment Last Done: 06/20/25 13:16
*Neglect/Abuse Screening Last Done: 06/20/25 19:32
*ED- Fall Risk Assessment Last Done: 06/20/25 19:32
*ED COVID-19 Vaccine History Last Done: 06/20/25 19:32
*ED Influenza Vaccine History Last Done: 06/20/25 19:32
*Nursing Disposition Last Done: 06/20/25 21:53
ED- Cardiac Assessment Last Done: 06/20/25 19:32
Discharge Date and Time
Discharge Date/Time: 06/20/25 21:54
[2025-06-20] MEDS: MORPHINE SULFATE 4 MG IV (14:21)
[2025-06-20 14:24] LABS: Troponin I 0.021 ng/ml
[2025-06-20 16:48] LABS: Troponin I 0.062 ng/ml
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
[2025-06-20 20:26] LABS: Troponin I 0.327 ng/ml
[2025-06-20] MEDS: COZAAR 50 MG PO (22:40)
[2025-06-20] MEDS: TYLENOL 650 MG PO (22:40)
[2025-06-20] MEDS: PROTONIX 40 MG PO (22:40)
[2025-06-20 23:18] LABS: Troponin I 0.523 ng/ml
--- NOTE | 2025-06-20 23:41 | PTCARENOTE ---
Received pt into room 2246 from ED RN at approx 2145. pt AAOx3, ambulating from stretcher to bed. tele placed on pt, AV paced with PVC's on the monitor, HR in the 60's. pt denies any CP or SOB at this time. pt c/o headache, scheduled Tylenol
administered--see OCT. pt oriented to room and call sandoval. Encouraged pt to call RN with any questions/concerns. Call sandoval within reach.
[2025-06-21] VITALS (14 sets, daily range): BP systolic 125–156; BP diastolic 61–84
[2025-06-21] MEDS: TYLENOL PO (01:10)
[2025-06-21] MEDS: TYLENOL 650 MG PO ×5 (03:16→20:23)
[2025-06-21 03:39] LABS: Hematocrit 40.5 % (37.0-47.0); Hemoglobin 13.1 g/dL (12.0-16.0); Mean Corp Hgb Conc. 32.3 g/dL (33.0-37.0); Mean Corpuscular Volume 91.6 fL (81.0-99.0); Platelet Count 265 10^3/uL (130-400); Red Cell Dist. Width 14.1 % (11.5-14.5)
[2025-06-21 03:49] LABS: ALT (SGPT) 54 U/L (0-35); AST (SGOT) 36 U/L (14-36); Albumin 3.7 g/dl (3.5-5.0); Alkaline Phosphatase 79 U/L (38-126); Blood Urea Nitrogen 20 mg/dl (7-17); Calcium 9.4 mg/dl (8.4-10.2); Carbon Dioxide 28 mmol/L (22-30); Chloride 108 mmol/L (98-107); Estimated Creatinine Clearance 51 ml/min; Glucose 98 mg/dl (70-99); Magnesium 2.1 mg/dl (1.6-2.3); Potassium 4.1 mmol/L (3.5-5.1); Sodium 137 mmol/L (135-145); Total Protein 6.1 g/dl (6.3-8.2); eGFR > 60.00
[2025-06-21 04:02] LABS: Troponin I 0.455 ng/ml
[2025-06-21] MEDS: SYNTHROID 100 MCG PO (06:25)
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
[2025-06-21] MEDS: ASPIR LOW (ENTERIC COATED) 81 MG PO (09:50)
[2025-06-21] MEDS: PEPCID 40 MG PO ×2 (09:51→20:23)
[2025-06-21] MEDS: LEXAPRO 20 MG PO (09:51)
[2025-06-21] MEDS: TOPROL XL 25 MG PO (09:51)
[2025-06-21] MEDS: MAGNESIUM OXIDE 400 MG PO (09:51)
[2025-06-21] MEDS: NORVASC 5 MG PO ×2 (09:51→20:23)
[2025-06-21] MEDS: COZAAR 50 MG PO ×2 (09:51→20:23)
[2025-06-21] MEDS: PROTONIX 40 MG PO ×2 (09:52→20:23)
[2025-06-21] MEDS: SOLU-MEDROL PF 40 MG IV ×2 (09:52→14:16)
[2025-06-21 10:21] LABS: Glycohemoglobin (HgbA1c) 5.5 % (4.0-5.6)
[2025-06-21] MEDS: OSCAL 500 + D PO (10:50)
--- NOTE | 2025-06-21 11:13 | CM ---
Reviewed chart. Met with Mrs. Curry and her son to review discharge plans. She states prior to admission she resides with her daughter and grandson in a two story home with two steps to enter. She states her son resides across the street from her.
She states she has a first floor set-up. She states her bedroom and full bathroom are on the first floor. She states prior to admission she was independent with ambulation and adls. She states she does not have any DME in the home. She states she
has a prescription plan and uses [facility]. The discharge plan is to return home with her daughter and grandson when medically stable.
[2025-06-21 13:07] LABS: HDL Cholesterol 64 mg/dl; LDL Cholesterol, Calculated 126 mg/dl; Very Low Density Lipoprotein 23 mg/dl (0-30)
--- NOTE | 2025-06-21 13:58 | PTCARENOTE ---
Assumed care of the pt @ 0700. Pt is AAOx3 V-paced with PVC's on the monitor denies cp. NPO for Cath today. 40 mg Solumedrol IVP given as ordered. Benadryl and Solumedrol ordered nutrition services manager to Locker Room Supervisor. Pt ambulates independently in the room. Call sandoval
within reach and family at bedside.
[2025-06-21] MEDS: BENADRYL 50 MG IV (15:00)
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
--- NOTE | 2025-06-21 16:34 | PTCARENOTE ---
Pt returned from CCL Rt radial TR band in place pulse ox 95% Rt groin dressing c/d/i. Pt was instructed on bedrest and activity restrictions. Verbalized understand. Pt neck and upper chest slightly pink in color no evidence of sob.
[2025-06-21] MEDS: LIPITOR 80 MG PO (17:49)
[2025-06-21] MEDS: COREG 12.5 MG PO (20:24)
[2025-06-21] MEDS: OSCAL 500 + D 500 MG PO (20:34)
--- NOTE | 2025-06-22 00:19 | PTCARENOTE ---
Received pt @ change of shift. AAOx3, drowsy from procedure. VSS-- AV paced/V paced on monitor. Right radial band taken off following protocol. 2x2 gauze and tegaderm in place. Area soft to touch, slightly ecchymotic, clean, dry and intact. Right
groin site clean, dry, and intact-- no ecchymosis and soft to touch. Discussed with TIRE MOLD TESTER, Ewa Pandey about giving Lovenox shot-- instructed to hold it for the night due to procedure/still had band on @ time. Discussed new medications with pt and
plan of care for evening. Pt verbalizes understanding. Call sandoval within reach.
[2025-06-22] MEDS: TYLENOL PO ×2 (00:32→13:16)
--- NOTE | 2025-06-22 02:18 | DOWNTIME ---
There was a Next One's On Me (NOOM) Client Science Interpreter Downtime on 06/22/2025 from 0100 to 06/22/2025 at 0215. Downtime documentation of patient's care, including medication administrations, has been reconciled in the electronic record per guidelines. Refer to the
patient's paper chart under the miscellaneous tab to see printed paper medication records and downtime forms.
[2025-06-22 04:19] VITALS: BP 145/57
[2025-06-22] MEDS: TYLENOL 650 MG PO ×2 (04:20→09:52)
[2025-06-22] MEDS: SYNTHROID 100 MCG PO (04:20)
[2025-06-22 04:55] LABS: Hematocrit 39.9 % (37.0-47.0); Hemoglobin 13.0 g/dL (12.0-16.0); Mean Corp Hgb Conc. 32.6 g/dL (33.0-37.0); Mean Corpuscular Volume 90.3 fL (81.0-99.0); Platelet Count 303 10^3/uL (130-400); Red Cell Dist. Width 13.9 % (11.5-14.5)
[2025-06-22 05:18] LABS: Blood Urea Nitrogen 24 mg/dl (7-17); Calcium 9.3 mg/dl (8.4-10.2); Carbon Dioxide 26 mmol/L (22-30); Chloride 106 mmol/L (98-107); Estimated Creatinine Clearance 58 ml/min; Glucose 147 mg/dl (70-99); Potassium 4.1 mmol/L (3.5-5.1); Sodium 137 mmol/L (135-145); eGFR > 60.00
--- NOTE | 2025-06-22 05:53 | PTCARENOTE ---
Pt rested all night with steady and comfortable breathing. Radial site clean, dry and intact, no ecchymosis or hematoma present. Right groin clean, dry, and intact as well-- no hematoma or ecchymosis present.
[2025-06-22 07:29] VITALS: BP 124/49
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
--- NOTE | 2025-06-22 09:30 | CM ---
Addendum entered by Lorena Nichols 06/22/25 13:36:
Received consult for VNA Services. Met with Mrs. Curry to review VNA Services. at this time she is declining VNA Services.
Original Note:
Reviewed chat. Met with Mrs. Curry to review discharge plans. She state she is feeling well and maybe able to go home soon. She states she has been ambulating. Prior to admission she resides with her daughter and grandson in a two story home with
two steps to enter. Her son resides across the street from her. She has a first floor set-up. Her bedroom and full bathroom are on the first floor. Prior to admission she was independent with ambulation and adls. She does not have any DME in the
home. She has a prescription plan and uses [facility]. The discharge plan is to return home with her daughter and grandson when medically stable.
[2025-06-22] MEDS: COREG 12.5 MG PO (09:53)
[2025-06-22] MEDS: ASPIR LOW (ENTERIC COATED) 81 MG PO (09:53)
[2025-06-22] MEDS: LEXAPRO 20 MG PO (09:53)
[2025-06-22] MEDS: MAGNESIUM OXIDE 400 MG PO (09:53)
[2025-06-22] MEDS: PROTONIX 40 MG PO (09:53)
[2025-06-22] MEDS: OSCAL 500 + D 500 MG PO (09:53)
[2025-06-22] MEDS: PEPCID 40 MG PO (09:53)
[2025-06-22] MEDS: COZAAR 50 MG PO (09:54)
[2025-06-22] MEDS: NORVASC 5 MG PO (09:54)
[2025-06-22 09:57] VITALS: BP 139/63
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
[2025-06-22 11:24] VITALS: BP 134/55
--- NOTE | 2025-06-22 11:27 | PTCARENOTE ---
Assumed care of the pt @ 0700. Pt is AAOx3 V Paced on the monitor with PVC's denies cp. Rt Rad and Rt Fem cath sites are c/d/i. Pt ambulates in the room and hallways independently. Call sandoval within reach.
[2025-06-22 11:54] VITALS: BP 124/60
--- NOTE | 2025-06-22 13:04 | W.PN.UPDATE ---
Update Note
Progress Note Update
Seen and examined the patient. Agree with the plan of care formulated by the resident. See changes in my documentation
80-year-old female with chest pain
Endoscopy 04/08/2025-normal esophagus. 4 cm hiatal hernia. Few gastric polyps resected and retrieved. Erythematous mucosa in the antrum biopsied. H. pylori was negative
06/21/25-Normal left ventricular size, wall thickness and systolic function. No regional wall motion abnormalities are seen.
2. Trileaflet aortic valve with thickened leaflets and restricted leaflet motion. Mild aortic stenosis. Peak/mean gradients across the aortic valve are 25/14 mmHg respectively.
3. Mild aortic valve stenosis.
4. Right ventricular size and systolic function are within normal limits.
Chest x-ray reviewed by me-mild cardiomegaly. Atelectasis, pacemaker noted
EKG-sinus rhythm with first degree AV block premature supraventricular complexes, left bundle branch block
CVS: S1-S2 normal, systolic murmur at apex
Chest: CTA B/L
Abdomen: Soft, NT / Bowel sounds present
Extremities: No edema
# Chest pain
Elevated troponin consistent with non-STEMI
Continue beta-blockers, losartan, statin, aspirin
Catheterization left heart-nonobstructive coronary disease preserved systolic function
# Valvular heart disease-mild MR, mild AI, mild to moderate , mild TR
# History of pacemaker placement for complete heart block
# History of TIA in 2019 ( with history of Linq implant)-continue aspirin and statin
# Hypertension-on losartan, amlodipine dose increased
# Hypothyroidism-continue levothyroxine
# Hyperlipidemia-continue statin
# Chronically elevated transaminases
# GERD-recent EGD noted. Continue PPI and Pepcid
# Anxiety-on buspirone, Lexapro
# Chronic vertigo on as needed meclizine
# Obesity with a BMI of 34
# DVT prophylaxis-Lovenox
# CODE STATUS- Full CODE
Discussed with RN at bedside
D/W Cards
More than 30 minutes spent in discharge including
Final examination of the patient
Summarizing hospital stay
Instructions for continuing care to all relevant caregivers
Preparation of discharge records, prescriptions, and referral forms
Part of this note was created using voice recognition system. Occasional wrong word or��sound alike� substitutions may have inadvertently occurred due to the inherent limitations of voice recognition software. If noted kindly bring it to my
attention for correction.
--- NOTE | 2025-06-22 15:10 | PTCARENOTE ---
Pt was discharged to home via wheelchair escort by PCT. campus monitor and piv removed prior to dc. Pt was instructed on change of medication and informed of next dose due for each medication. Pt verbalized understanding
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
== END 2025-06-22 16:14 | disposition home or self-care (01) | DRG 287 ==
LOC: IVU 17:22
PROVIDERS: Internal Medicine Interventional Cardiology; Nurse Practitioner; ADMITTING PHYSICIAN Hospitalist; CONSULT PHYSICIAN Internal Medicine Cardiovascular Disease; EMERGENCY PHYSICIAN Student in an Organized Health Care Education/Training Program; FAMILY PHYSICIAN Family Medicine
PROC: 4A023N7 Measurement of Cardiac Sampling and Pressure, Left Heart, Percutaneous Approach (ICD-10-PCS; 2025-06-21)
PROC: B2111ZZ Fluoroscopy of Multiple Coronary Arteries using Low Osmolar Contrast (ICD-10-PCS; 2025-06-21)
PROC: B2151ZZ Fluoroscopy of Left Heart using Low Osmolar Contrast (ICD-10-PCS; 2025-06-21)
DX: I25.10 Atherosclerotic heart disease of native coronary artery without angina pectoris (principal); J98.11 Atelectasis; I10 Essential (primary) hypertension; E03.9 Hypothyroidism, unspecified; E78.00 Pure hypercholesterolemia, unspecified; K21.9 Gastro-esophageal reflux disease without esophagitis; F41.1 Generalized anxiety disorder; E66.9 Obesity, unspecified; Z68.32 Body mass index [BMI] 32.0-32.9, adult; Z95.0 Presence of cardiac pacemaker; Z86.73 Personal history of transient ischemic attack (TIA), and cerebral infarction without residual deficits; I44.0 Atrioventricular block, first degree; I44.7 Left bundle-branch block, unspecified; I49.1 Atrial premature depolarization; Z79.82 Long term (current) use of aspirin; Z79.890 Hormone replacement therapy; Z79.899 Other long term (current) drug therapy; Z91.041 Radiographic dye allergy status; Z96.653 Presence of artificial knee joint, bilateral; I49.3 Ventricular premature depolarization; R13.10 Dysphagia, unspecified
CPT/HCPCS: 71046; 80048; 80053; 80061; 83036; 83690; 83735; 84484; 85025; 85027; 85610; 93005; 93306; 93458; 93970; 96374; 99152; 99153; 99285; C1769; C1894; Q9967

== ENCOUNTER → 2025-08-22 09:10 | Outpatient (REF) | payer MEDICARE, BC, SELFPAY ==
[2025-08-22 10:54] LABS: Hematocrit 44.0 % (37.0-47.0); Hemoglobin 14.4 g/dL (12.0-16.0); Mean Corp Hgb Conc. 32.7 g/dL (33.0-37.0); Mean Corpuscular Volume 91.3 fL (81.0-99.0); Nucleated Red Blood Cells % 0 %; Platelet Count 273 10^3/uL (130-400); Red Cell Dist. Width 13.7 % (11.5-14.5)
[2025-08-22 12:48] LABS: ALT (SGPT) 51 U/L (0-35); AST (SGOT) 41 U/L (14-36); Albumin 4.5 g/dl (3.5-5.0); Alkaline Phosphatase 82 U/L (38-126); Blood Urea Nitrogen 24 mg/dl (7-17); Calcium 9.7 mg/dl (8.4-10.2); Carbon Dioxide 30 mmol/L (22-30); Chloride 103 mmol/L (98-107); Glucose 97 mg/dl (70-99); HDL Cholesterol 64 mg/dl; LDL Cholesterol, Calculated 124 mg/dl; Potassium 4.6 mmol/L (3.5-5.1); Sodium 140 mmol/L (135-145); Total Protein 7.1 g/dl (6.3-8.2); Very Low Density Lipoprotein 24 mg/dl (0-30); eGFR > 60.00
[2025-08-22 13:07] LABS: TSH 2.28 uIU/ml (0.47-4.68)
== END ==
LOC: REG 09:10
PROVIDERS: ATTENDING PHYSICIAN Family Medicine; FAMILY PHYSICIAN Orthopaedic Surgery
DX: I10 Essential (primary) hypertension (principal); E78.5 Hyperlipidemia, unspecified; R53.83 Other fatigue; E03.9 Hypothyroidism, unspecified
CPT/HCPCS: 36415; 80053; 80061; 84443; 85025